=== PATIENT | female | born 1970 | race American Indian/Alaskan Native ===

== ENCOUNTER 2019-05-01 15:56 | Inpatient (IN) | payer OTHER ==
[~2019-05-01] VITALS: Ht 167.6 cm; Wt 98.8 kg
--- NOTE | 2019-05-01 21:40 | NUR ---
PT ARRIVES TO FLOOR VIA STRETCHER, PT PULLED OVER TO HOSPITAL BED. PT SETTLED IN BED, STATES THAT SHE NEEDS TO VOID. PT ASSISTED TO BSC WITH 2PA. PT REPORTS INCREASED PAIN WITH MOVEMENT. PT ASSISTED BACK TO BED. PT WOULD LIKE HER PURSE PLACED IN THE HOSPITAL SAFE. PURSE REMOVED FROM ROOM AND GIVEN TO MEDICAL LABORATORY TECHNOLOGIST TO PLACE IN THE SAFE. CUSTOMER EXPERIENCE RETAIL CLERK TO ROOM TO COMPLETE ADMISSION PROCESS. PT ORIENTED TO ROOM AND POC FOR THIS SHIFT. CALL LIGHT IN REACH AND INSTRUCTIONS FOR IT'S USE PROVIDED.
--- NOTE | 2019-05-01 23:41 | NUR ---
PT RESTING IN BED WITH EYES CLOSED. WAKES WHEN BOX PACKER ENTERS THE ROOM AND BEGINS SOBBING. PT RATES PAIN 10/10 TO R SHOULDER, STATES IT IS THROBBING. PRN MORPHINE ADMINISTERED. PT DENIES SOB OR NAUSEA. PT ASSESSMENT COMPLETE. PT HAS MULTIPLE ABRASIONS TO BILATERAL LOWER EXTREMITIES. PT REPORTS SLIGHT ABD TENDERNESS TO PALPATION. PT IS UNSURE OF LAST BM. PT VERY SLEEPY DURING ASSESSMENT AFTER MORPHINE ADMINISTRATION. PT CONTINUES TO STARTLE AWAKE AND SOB. PT REQUESTS ICE WATER, PROVIDED. PT DENIES FURTHER NEEDS. CALL LIGHT WITHIN REACH.
--- NOTE | 2019-05-02 00:56 | NUR ---
PT UTILIZES CALL LIGHT, REQUESTS TO USE THE BSC. PT UP TO BSC AND BACK TO BED WITH 1 PA. ONCE PT UP SHE BECOMES NAUSEATED. PT HAD 800 ML OF EMESIS. PT REPORTS SHE TYPICALLY EXPERIENCES NAUSEA AND EMESIS WHEN SHE DRINKS. PT STATES THAT SHE DOES NOT DRINK OFTEN, BUT HAS DRANK AT LEAST TWICE THIS WEEKED. PT BACK TO BED. BEGINS SOBBING AGAIN DUE TO PAIN WHICH SHE RATES 10/10. PRN TORADOL AND ZOFRAN ADMINISTERED. PT DENIES FURTHER NEEDS. CALL LIGHT IN REACH.
--- NOTE | 2019-05-02 02:28 | NUR ---
PT RESTING IN BED WITH EYES CLOSED. RESPIRATIONS EVEN AND UNLABORED, RR 18. PT APPEARS TO BE SLEEPING. LIGHT SNORING AUDIBLE. CALL LIGHT IN REACH.
--- NOTE | 2019-05-02 02:48 | NUR ---
PT RESTING IN BED WITH EYES CLOSED. DOES NOT WAKE WHILE WELL DRILL OPERATOR ROTARY DRILL IN DOORWAY. PT SNORING AUDIBLY, RESPIRATIONS EVEN AND UNLABORED. CALL LIGHT IN REACH.
--- NOTE | 2019-05-02 05:39 | NUR ---
PT ASSESSMENT COMPLETE. PT RATES PAIN 10/10, PT CRYING. PT DENIES NAUSEA OR SOB. PRN MORPHINE, 4 MG ADMINISTERED. PT DROWSY DURING ASSESSMENT AFTER PARTY PLAN SALESPERSON, WAKES BRIEFLY TO CRY, FALLS BACK TO SLEEP EASILY. PT ORIENTED, ANSWERS QUESTIONS APPROPRIATELY. SHOULER IMMOBILIZER IN PLACE. CMS INTACT TO ALL EXTREMITIES. C COLLAR REMAINS IN PLACE. IV FLUSHED, WNL. PT DENIES FURTHER NEEDS AT THIS TIME. CALL LIGHT IN REACH.
--- NOTE | 2019-05-02 05:50 | NUR ---
PT SLEPT OFF AND ON THIS SHIFT. MS AND TORADOL FOR C/O PAIN TO R SHOULDER, R WRIST, R HAND, AND L ANKLE. ZOFRAN X1 FOR NAUSEA AND EMESIS. PT ORIENTED. CRIES WHILE AWAKE. ABRASIONS PRESENT TO L WRIST AND L ANN. SHOULDER IMMOBILIZER PRESENT TO R SHOULDER. C COLLAR IN PLACE. 1 PA TO BSC, UO QS. IVF INFUSING.
--- NOTE | 2019-05-02 07:39 | NUR ---
REPORT RECEIVED FROM SUSY KEARNEY. PT APPEARS TO BE ASLEEP, NECK COLLAR IN PLACE.
--- NOTE | 2019-05-02 08:30 | NUR ---
NOTIFIED OFFICE OF CONSULT, KRISS AWARE
--- NOTE | 2019-05-02 08:38 | NUR ---
PT WIMPERING WHEN ENTERED ROOM. STATES HER PAIN IS 10/10. GIVEN 4MG MORPHINE. UP MELISSA RESTROOM. URINE DARK TROY. REPORTS PAIN IS IN ANKLE-APPEARS NON SWOLLEN, SMALL SCRATCH. MID BACK ALSO APPEARS WNL, NO REDNESS OR SWELLING\BRUISING NOTED. ALSO REPORTS HEADACHE. WILL GIVE TORADOL KEVYN.
--- NOTE | 2019-05-02 09:52 | NUR ---
PT APPEARS MORE COMFORTABLE. TALKING ON PHONE. APPLE JUICE AND BROTH ORDERED.
--- NOTE | 2019-05-02 10:05 | NUR ---
CALLED DR YOUNG OFFICE IN REGARDS TO HIS CONSULT AND HE SAID HE WAS HOPING TO BE HERE IN 45 MINUTES.
[2019-05-02] MEDS ORDERED: VENTOLIN HFA18 GM INH (10:23)
[2019-05-02] MEDS ORDERED: WELLBUTRIN XL300 MG PO (10:23)
[2019-05-02] MEDS ORDERED: CATAPRES0.1 MG PO (10:24)
[2019-05-02] MEDS ORDERED: FERROUS SULFAT324 MG PO (10:25)
[2019-05-02] MEDS ORDERED: CLARITIN10 MG PO (10:25)
[2019-05-02] MEDS ORDERED: HYDROXYZINE HCL25 MG PO (10:25)
[2019-05-02] MEDS ORDERED: MINIPRESS2 MG PO (10:26)
[2019-05-02] MEDS ORDERED: SINGULAIR10 MG PO (10:26)
[2019-05-02] MEDS ORDERED: MINIPRESS1 MG PO (10:26)
[2019-05-02] MEDS ORDERED: TERBINAFINE HC250 MG PO (10:27)
[2019-05-02] MEDS ORDERED: MELATONIN3 MG PO (10:32)
--- NOTE | 2019-05-02 10:32 | NUR ---
MED REC COMPLETE
--- NOTE | 2019-05-02 11:22 | NUR ---
ASSUMED CARE OF PT FROM SHERRI Joya R.N. PT LYING IN BED APPEARS TO BE SLEEPING. EYES CLOSED, RESP EVEN AND UNLABORED. O2 SAT 96% ON RA. IV INFUSING WNL. CALL LIGHT WITHIN REACH.
--- NOTE | 2019-05-02 13:10 | NUR ---
PT LYING IN BED AWAKE TALKING WITH A COUPLE VISITORS, SEEMS IN BETTER SPIRITS, SMILING. REPORTS 10/10 "ALL OVER" PAIN. MEDICATED WITH 4MG IV MORPHINE. PT GIVEN FRESH ICE WATER AND 7UP PER PT REQUEST. CSPINE COLLAR IN PLACE, SLING TO RIGHT ARM, MENDEZ WRAP TO RIGHT WRIST. IV INFUSING WNL. CALL LIGHT WITHIN REACH.
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
--- NOTE | 2019-05-02 14:43 | NUR ---
PATIENT UP TO BATHROOM AND BACK TO BED, 1PA. PATIENT COMPLAINED OF 10 OUT OF 10 PAIN, RN NOTIFIED. CALL LIGHT IN REACH. NO FURTHER NEEDS AT THIS TIME.
--- NOTE | 2019-05-02 14:44 | NUR ---
PT IS CRYING AND TEARFUL. PT ABLE TO WALK TO BATHROOM WITH ASSISTANCE FROM RN AND INSTRUCTOR WEAVING. PT WOULD LIKE TO TRY CHICKEN BROTH AT THIS TIME. SUSY HEADLEY ADVISED.
--- NOTE | 2019-05-02 15:05 | NUR ---
PT LYING IN BED, EYES CLOSED, RESP EVEN AND UNLABORED. O2 SAT 99% ON RA.
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
--- NOTE | 2019-05-02 17:09 | NUR ---
PT MEDICATED WITH SCHEDULED AND PRN ANTI ANXIETY MEDICATIONS PER PT REQUEST. PT ALSO REPORTING 10/10 GENERALIZED PAIN, MEDICATED WITH PERCOCET. PT SITTING UP IN BED MAKING EASY CONVERSATION, ORDERED LARGE DINNER. CALL LIGHT WITHIN REACH.
--- NOTE | 2019-05-02 17:20 | NUR ---
SPOKE WITH PATIENT IN ROOM. PATIENT STATES SHE DOES NOT LIVE IN [place] HER ADDRESS REFLECTS, STATES IT IS OLD ADDRESS. SHE LIVES WITH HER IN [place]. PT PROVIDED UPDATED ADDRESS AND PHONE NUMBER. SHE NORMALLY DOES NOT USE ANY DME. LIVES IN APARTMENT WITH [address] UP TO HER FLOOR. SHE INTENDS TO DISCHARGE HOME. PATIENTS STAFF NURSE IS IN TO GIVE HER MEDICATIONS DUE. WILL CONTINUE TO FOLLOW.
--- NOTE | 2019-05-02 18:24 | NUR ---
PATIENT IN BED, FINISHING UP DINNER, VS DONE, INTAKE RECORDED NOT DINNER, PATIENT WILL CALL WHEN FINISHED WITH TRAY
--- NOTE | 2019-05-02 18:54 | NUR ---
PT SITTING UP EATING REGULAR DINNER, ANTONIO WELL. CSPINE AND SLING IN PLACE. DENIES NEEDS OR CONCERNS AT THIS TIME. CALL LIGHT WITHIN REACH.
--- NOTE | 2019-05-02 22:28 | NUR ---
PT ASSESSMENT COMPLETE. PT REPORTS PAIN 8/10 TO R SHOULDER AND BACK. PRN PERCOCET ADMINISTERED. PT DENIES SOB OR NAUSEA. C COLLAR AND SHOULDER IMMOBILIZER IN PLACE. CMS INTACT TO ALL EXTREMITIES. PT DENIES NUMBNESS OR TINGLING. PT UP TO THE BATHROOM WITH SBA. BATH PROVIDED WITH BATH WIPES. PT'S HAIR COMBED AND BRAIDED BY THIS PARALEGAL ASSISTANT. PT ABLE TO STAND AND BRUSH HER TEETH. PT BACK TO BED, STATES "I THINK MY MEDS ARE STARTING TO KICK IN". IVF INFUSING. NEW ICE PACK PROVIDED. PT DENIES FURTHER NEEDS AT THIS TIME. CALL LIGHT IN REACH.
--- NOTE | 2019-05-02 23:26 | NUR ---
PT RESTING IN BED WITH EYES CLOSED.R ESPIRATIONS EVEN AND UNLABORED, SA02 91%. PT APPEARS TO BE SLEEPING. CALL LIGHT IN REACH.
--- NOTE | 2019-05-03 01:15 | NUR ---
PT RESTING IN BED ON HER L SIDE, SNORING AUDIBLY. SAO2 94%. CALL LIGHT IN REACH.
--- NOTE | 2019-05-03 03:11 | NUR ---
PT RESTING IN BED WITH EYES CLOSED, SNORING AUDIBLY. DOES NOT WAKE TO PULSE OX ALARMING. SA02 96%. CALL LIGHT IN REACH.
--- NOTE | 2019-05-03 05:09 | NUR ---
PT UTILIZES CALL LIGHT, REPORTS PAIN 8/10 TO SHOULDER AND BACK. PRN PERCOCET ADMINISTERED. PT ASSESSMENT COMPLETE. PT UP TO BATHROOM AND BACK TO BED WITH SBA, TOLERATED WELL. PT STATES THAT SHE IS FEELING ANXIOUS, STATES THAT SHE HAS BEEN ROUTINELY TAKING ANXIOLYTICS SINCE STARTING "RECOVERY", STATES EVERYTHING WAS GOING WELL UNTIL THE RECENT PASSING OF HER MOTHER. PT STATES "I THINK I'M DONE FOR GOOD AFTER THIS THOUGHT. PT REQUESTS PRN ANXIETY MEDICATION. PRN VISTARIL ADMINISTERED. ICE WATER REFILLED, NEW ICE PACK PROVIDED FOR SHOULDER. PT DENIES FURTHER NEEDS AT THIS TIME. CALL LIGHT IN REACH.
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
--- NOTE | 2019-05-03 09:07 | NUR ---
PT ON THE PHONE WITH HER DAUGHTER UPON THIS RN ENTERING ROOM PT REQUESTED THAT I TALK TO HER DAUGHTER TO GIVE HER AN UPDATE ON PT STATUS. UPDATE GIVEN. PT RAISED THE HEAD OF HER BED UP AND BEGAN SOBBING STATING SHE HAS A STABBING SENSATION IN HER LEFT LOWER BACK. REPORTS 8/10 "ALL OVER" PAIN. MEDICATED WITH PRN PERCOCET AND PRN ANTI ANXIETY MEDICATIONS PER PT REQUEST. C-COLLAR IN PLACE, SLING AND SHOULDER IMMOBILIZER TO RIGHT ARM. IV INFUSING WNL. PT SATTING 99% ON RA. DROWSY BUT ORIENTED TO ALL. CALL LIGHT WITHIN REACH.
--- NOTE | 2019-05-03 09:30 | NUR ---
In and spoke with Karina. She is concerned how she will get home to [place]. Let her know I will talk with Dr. Fox and find out what day he plans to dc her. She complains of neck brace discomfort and let her know they are getting a different brace for her due to the length of time she will need to wear.
--- NOTE | 2019-05-03 10:02 | NUR ---
PATIENT UP TO BATHROOM AND BACK TO BED, 1PA. PATIENT A LITTLE DIZZY AT FIRST. CALL LIGHT IN REACH. NO FURTHER NEEDS AT THIS TIME.
--- NOTE | 2019-05-03 11:20 | NUR ---
PT LYING IN BED, APPEARS TO BE SLEEPING. EYES CLOSED, RESP EVEN AND UNLABORED.
--- NOTE | 2019-05-03 12:00 | NUR ---
PT RESTING IN BED, STILL IN NECK COLLAR. R SHOULDER VERY TENDER AND IN SLING. PT SPEAKS VERY SOFTLY, REQUESTED PRAYER WITH TEARS FOR HER NEPHEW AND BROTHER WELL HER OWN CHILDREN. I PERCEIVE THEY ARE TEARS OF SADDNESS, PHYSICAL PAIN AND EMOTION FROM A BROKEN HEART. GAVE ENCOURAGEMENT AND COMFORT. GAVE PT TISSUES. WILL FOLLOW NEEDED
--- NOTE | 2019-05-03 13:36 | NUR ---
PT CALLED REQUESTING PAIN MEDICATION, RATES PAIN 10/10. UPON ENTERING ROOM PT TALKING QUIETLY ON PHONE, ATE ALL OF LUNCH, ANTONIO WELL. MEDICATED WITH PRN PERCOCET. CALL LIGHT WITHIN REACH.
--- NOTE | 2019-05-03 14:06 | NUR ---
PATIENT IN BED WATCHIGN TV. CALL LIGHT IN REACH. NO FURTHER NEEDS AT THIS TIME.
--- NOTE | 2019-05-03 15:20 | NUR ---
PT SITTING UP IN BED TALKING ON THE PHONE. CALL LIGHT WITHIN REACH.
--- NOTE | 2019-05-03 15:30 | NUR ---
Spoke with Dr. Fox. He plans on discharging patient tomorrow. In and spoke with pt. She asks I call her . Called and spoke with Kev. He is working, he will check with her daughter to see if she can picking belt operator. He states he will call me back.
--- NOTE | 2019-05-03 17:24 | NUR ---
Called pt's cousin Ethan at her request. Updated she can discharge tomorrow. Let him know I have called her spouse and he was attempting to make arrangements with pt's daughter. Ethan states to call him, if she doesn't have a ride tomorrow [phone].
--- NOTE | 2019-05-03 17:30 | NUR ---
C-COLLAR REMOVED AND NEW ASPEN C-COLLAR APPLIED BY THIS RN AND JERI RN, PT ANTONIO WELL. NECK CLEANED AND DRIED PRIOR TO APPLICATION OF NEW COLLAR. PT FAMILY IN TO VISIT SHORTLY. AFTER VISITORS LEFT THIS RN PROVIDED SBA TO PT TO RESTROOM. PT AMB TO RECLINER AFTER VOIDING, SITTING UP EATING DINNER INDEPENDENTLY. LINENS CHANGED. PT MEDICATED WITH PRN ANTI ANXIETY MEDICATIONS AND PERCOCET PER PT REQUEST. GIVEN NEW ICE PACK. CALL LIGHT WITHIN REACH.
--- NOTE | 2019-05-03 18:12 | NUR ---
PATIENT SITTING UP IN CHAIR. VITAL SIGNS AND I&O DONE. PATIENT ASKS FOR HER ANXIETY MEDICATION. RN NOTIFIED. CALL LIGHT WITHIN REACH. NO OTHER NEEDS AT THIS TIME
--- NOTE | 2019-05-03 19:08 | NUR ---
PT SITTING UP IN RECLINER, ATE ALL OF DINNER, ANTONIO WELL. STATES "IT ACTUALLY FEELS PRETTY GOOD TO SIT UP IN THE CHAIR." CALL LIGHT WITHIN REACH.
--- NOTE | 2019-05-03 20:30 | NUR ---
PATIENT GIVEN NEW ICE WATER, CUP OF ICED 7UP, AND HER SANDWICH SHE SAVED IN THE FRIDGE. CALL LIGHT IN REACH.
--- NOTE | 2019-05-03 22:32 | NUR ---
SBA TO THE BATHROOM AND BACK TO BED. MADE NEW ICE PACK FOR RIGHT SHOULDER. ICE WATER REFILLED. NO OTHER NEEDS AT THIS TIME. CALL LIGHT IN REACH.
--- NOTE | 2019-05-04 00:01 | NUR ---
PATIENT RESTING QUIETLY WITH NO NEEDS AT THIS TIME. CALL LIGHT IN REACH.
--- NOTE | 2019-05-04 01:04 | NUR ---
PATIENT RESTING QUIETLY, LIGHT SNORE, EYES CLOSED, RESPIRATIONS REGULAR AND EVEN AND CALL LIGHT IN REACH.
--- NOTE | 2019-05-04 03:18 | NUR ---
PATIENT HAS BEEN RESTING QUIETLY, WITH EYES CLOSED AND NO COMPLAINTS OF PAIN, WITH EVEN AND REGULAR RESPIRATIONS. CALL LIGHT IN REACH.
--- NOTE | 2019-05-04 03:34 | NUR ---
Pt used call light to request pain medication, when asked her pain level is at a 10. RN Jose Antonio in another pt room but is aware. Pt aware, and asked for assistance into restroom. New ice pack given.
--- NOTE | 2019-05-04 05:28 | NUR ---
PATIENT HAS NEEDED 2 PERCOCET X2 THROUGH THE NIGHT FOR GENERALIZED PAIN, BUT MAINLY IN THE NECK AND RT SHOULDER. PATIENT RESTING RIGHT NOW, EYES CLOSED, RESPIRATIONS REGULAR AND EVEN AND HAD ASKED AFTER HER LAST PAIN MEDICATIONS TO BE AWOKEN AT 7AM SO SHE COULD CALL FOR A RIDE TO GET HOME WHEN DC'D. CALL LIGHT IN REACH. NEW IV BAG UP AND SCANNED.
--- NOTE | 2019-05-04 07:45 | NUR ---
PT RESTING IN BED. PT VOICING FEELINGS OF ANXIETY AND PAIN, GIVEN PERCOCET AND VISTARIL PER ORDER, PT HAVING ANXIETY ABOUT TRAVELING TO [place] TODAY, DISCUSSED WITH PT THAT SHE COULD CONSIDER STAYING WITH FAMILY IN [place] UNTIL WEATHER HAS IMPROVED IN [place]. PT ON ROOM AIR, LUNG SOUNDS CLEAR. PT DENIES NAUSEA, BOWEL TONES ACTIVE. CMS INTACT. RIGHT ARM IN SLING, FULL SENSATION, PULSE PALPABLE. NECK BRACE IN PLACE. LEFT ARM WITH SWELLING, IV ASSESSED, TENDER TO FLUSH, IV FLUIDS STOPPED AT THIS TIME. DISCUSSED PLAN OF CARE FOR THE DAY. PT RIDE WILL ARRIVE AROUND 0900, DISCUSSED THAT DR. ROQUE WILL NEED TO COME TO SEE HER BEFORE DISCHARGE.
--- NOTE | 2019-05-04 09:24 | NUR ---
PATIENT RESTING IN BED. FAMILY IN ROOM. VITAL SIGNS AND I&O DONE. CALL LIGHT WITHIN REACH. NO OTHER NEEDS AT THIS TIME
[2019-05-04] MEDS ORDERED: IBUPROFEN600 MG PO (12:59)
[2019-05-04] MEDS ORDERED: OXYCODON-ACETA1 EAC2 PO (12:59)
[2019-05-04] MEDS ORDERED: TYLENOL EXTRA500 MG PO (13:00)
--- NOTE | 2019-05-04 13:00 | NUR ---
In and spokew oscar Collins. Family here. Dr. Fox here to discharge pt. She will go home with her cousin Ethan, until family can pick her up from [place]. Pt. denies other needs.
[2019-05-04] MEDS ORDERED: BACTRIM DS TAB1 EACH PO (13:07)
--- NOTE | 2019-05-04 13:11 | NUR ---
PT SITTING IN BED, NEW NECK BRACE ON. A LITTLE MORE VOLUME IN HER VOICE TODAY. PT SAID SHE GOT SOME SLEEP. INTRO ME TO HER SON GUILLERMINA- SEEMS VERY QUIET AND RESERVED. PT REQUESTED PRAYER FOR HER FAMILY, SHOULD BE DC'D TODAY. WILL ALSO FOLLOW NEEDED
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
== END 2019-05-04 13:46 | disposition home or self-care (01) | DRG 563 ==
LOC: ED 15:56 → MS 15:58
PROVIDERS: ADMIT Surgery
DX: S43.004A Unspecified dislocation of right shoulder joint, initial encounter (principal); S12.600A Unspecified displaced fracture of seventh cervical vertebra, initial encounter for closed fracture; N39.0 Urinary tract infection, site not specified; F10.129 Alcohol abuse with intoxication, unspecified; Y90.8 Blood alcohol level of 240 mg/100 ml or more; D64.9 Anemia, unspecified; F41.9 Anxiety disorder, unspecified; G47.00 Insomnia, unspecified; S63.90XA Sprain of unspecified part of unspecified wrist and hand, initial encounter; B96.20 Unspecified Escherichia coli [E. coli] as the cause of diseases classified elsewhere; E66.9 Obesity, unspecified; V48.6XXA Car passenger injured in noncollision transport accident in traffic accident, initial encounter; Z79.899 Other long term (current) drug therapy; Z88.0 Allergy status to penicillin; Z68.35 Body mass index [BMI] 35.0-35.9, adult
CPT/HCPCS: 23650; 29125; 36415; 70450; 70486; 71260; 72125; 73030; 73130; 73590; 74177; 80053; 81001; 82150; 82247; 82465; 82550; 83615; 83690; 84100; 84478; 84550; 85025; 86850; 86870; 86900; 86901; 87077; 87088; 87186; 99285-25; A9270; G0480; J1644; J1885; J2270; J2405; J2704; J3411; J3475; J7121; Q0177